=== PATIENT | male | born 2000 ===

== ENCOUNTER 2024-02-26 21:37 | Emergency (ER) | payer BC ==
[2024-02-26] MEDS: Lidocaine 1% 5 ML VIAL INJECT ONE (22:08)
[2024-02-26] MEDS ORDERED: Cephalexin 500 MG Cap ONE (23:00)
[2024-02-27] MEDS: Diphtheria,Pertussis(Acell),Tetanus Vaccine 0.5 ML Syringe IM ONE (01:32)
== END 2024-02-27 01:27 | disposition home or self-care (01) ==
LOC: LB.ED 21:37
DX: S63.286A Dislocation of proximal interphalangeal joint of right little finger, initial encounter (principal); Z23 Encounter for immunization; W21.05XA Struck by basketball, initial encounter; Y93.67 Activity, basketball
CPT/HCPCS: 26770; 73140; 90471; 90715; 99283; A9270